=== PATIENT | female | born 1980 | race Caucasian/White ===

== ENCOUNTER 2021-10-26 14:05 | Emergency (ER) | payer BC ==
--- OUTSIDE RECORDS SUMMARY | 2021-10-26 14:10 | XMS REPORT | Continuity of Care Document ---
:1980 Author Organization [facility] t Address [address] [place] [address] Care Team Providers Name Role Phone Catherine GARCÍA Primary Care Physician Unavailable David Attending Clinician Unavailable Raimundo Knott Attending Clinician [phone] RADIOLOGY Attending Clinician Unavailable Radiology Attending Clinician Unavailable GENE Attending Clinician Unavailable Gene MUSIC COORDINATOR Attending Clinician DWAYNE VALADEZ Attending Clinician Unavailable Mary ROGERS Attending Clinician Unavailable ARMANDO Attending Clinician Unavailable Only, Db Test Attending Clinician Unavailable Armando BASSETT Attending Clinician Ebrahim MUSIC COORDINATOR Attending Clinician EBRAHIM Attending Clinician Unavailable Ibikundoretha MUSIC COORDINATOR, F Attending Clinician IBIKUNLE, F Attending Clinician Unavailable UNKNOWN Attending Clinician Unavailable Ramona ROJO Attending Clinician Unavailable Dwayne Valadez DO Attending Clinician Doctor Unassigned, Name Attending Clinician Unavailable ANENE Attending Clinician Unavailable Ramona Rojo MD Attending Clinician Green MUSIC COORDINATOR Attending Clinician Unknown Attending Clinician Unavailable Aron BASSETT, E Attending Clinician David Admitting Clinician Unavailable RAIMUNDO KNOTT Admitting Clinician Unavailable EDWIN, Isabel Admitting Clinician Unavailable Payers Payer Name Policy Type Policy Number Effective Date Expiration Date [place] [id number] 2019 00:00:00 BLUE ESSENTIALS [id number] 2019 HMO 00:00:00 [employer] TRS CARE [id number] 2015 2019 00:00:00 00:00:00 Problems Condition Condition Condition Status Onset Resolution Last Treating Co mments Source Name Details Category Date Date Treatment Clinician Date Hypertensi Hypertensi Disease Active 2020-04 U nivers on on 05-31 ity of 00:00: [place] [facility] Acquired Acquired Disease Active 2016-04 Unive rs hypothyroi hypothyroi 0 it y of dism dism 00:00: [place] 00 [facility] Branch Anemia, Anemia, Disease Active 2016-04 Univers unspecifie unspecifie it y of d type d type 00:00: [place] 00 Medical [place] Allergies, Adverse Reactions, Alerts Allergy Allergy Status Severity Reaction(s) Onset Inactive Treating Comm ents Source Name Type Date Date Clinician Erythrom Propensi Active Nausea 2015-04 Univer s ycin ty to and/or 0-14 ity of adverse Vomiting 00:00: [place] reaction 00 [facility] s Branch ERYTHROM DRUG Active N/V 2015-04 Univers YCIN 0-14 ity of 00:00: [place] 00 [facility] Social History Social Habit Start Date Stop Date Quantity Comments Source Alcohol Comment social [facility] Exposure to 2021-09-21 2021-10-01 Not sure [facility] SARS-CoV-2 (event) 00:00:00 10:10:00 Medica l Branch Alcohol intake 2021-10-01 2021-10-01 0 /d [facility] 00:00:00 00:00:00 [facility] Tobacco use and 2019-10-24 2019-10-24 Never used [facility] exposure 00:00:00 00:00:00 [facility] Sex [birth year] [facility] 00:00:00 00:00:00 [facility] Smoking Status Start Date Stop Date Source Never smoker [facility] Medications Ordered Filled Start Stop Current Ordering Indication Dosage Frequency Signature Comments Components Source Medication Medication Date Date Medication? Clinician (SIG) Name Name benzonatate 2020-04 Yes [id number] 200mg Take 2 Univers (TESSALON 2-28 capsules ity of WILLIE) 100 00:00: by mouth [place] mg capsule 00 every 8 Medica l (eight) Branch hours as needed for Cough. benzonatate 2020-04 Yes [id number] 200mg Take 2 Univers (TESSALON 2-28 capsules ity of WILLIE) 100 00:00: by mouth [place] mg capsule 00 every 8 Medica l (eight) Branch hours as needed for Cough. lisinopriL 2020-04 Yes Univers 5 mg tablet 2-21 ity of 00:00: [place] 00 Medical Branch lisinopriL 2020-04 Yes Univers 5 mg tablet 2-21 ity of 00:00: [place] 00 Medical Branch CALCIUM 2020-04 Yes Take by Univer s CARBONATE/V 0-22 mouth. ity of ITAMIN D2 18:13: [place] (CALCIUM + 35 Medical VITAMIN D Branch ORAL) MULTIVITAMI 2020-04 Yes Take by Un mechelle N ORAL 0-22 mouth. ity of 18:13: [address] Branch IRON, 2020-04 Yes Take by Univers FERROUS 0-22 mouth. ity of SULFATE, 18:13: [place] [address] Medical Branch Cholecalcif 2020-04 Yes Take by Un mechelle malu, 0-22 mouth. ity of Vitamin D3, 18:13: [place] (VITAMIN 35 Medical D3) 50 mcg Branch (2,000 unit) capsule CALCIUM 2020-04 Yes Take by Univer s CARBONATE/V 0-22 mouth. ity of ITAMIN D2 18:13: [place] (CALCIUM + 35 Medical VITAMIN D Branch ORAL) MULTIVITAMI 2020-04 Yes Take by Un mechelle N ORAL 0-22 mouth. ity of 18:13: [address] Branch IRON, 2020-04 Yes Take by Univers FERROUS 0-22 mouth. ity of SULFATE, 18:13: [place] [address] Medical Branch Cholecalcif 2020-04 Yes Take by Un mechelle malu, 0-22 mouth. ity of Vitamin D3, 18:13: [place] (VITAMIN 35 Medical D3) 50 mcg Branch (2,000 unit) capsule CALCIUM 2020-04 Yes Take by Univer s CARBONATE/V 0-22 mouth. ity of ITAMIN D2 18:13: [place] (CALCIUM + 35 Medical VITAMIN D Branch ORAL) MULTIVITAMI 2020-04 Yes Take by Un mechelle N ORAL 0-22 mouth. ity of 18:13: [place] 35 Medical Branch IRON, 2020-04 Yes Take by Univers FERROUS 0-22 mouth. ity of SULFATE, 18:13: [place] ORAL 35 Medical Branch Cholecalcif 2020-04 Yes Take by Un mechelle malu, 0-22 mouth. ity of Vitamin D3, 18:13: [place] (VITAMIN 35 Medical D3) 50 mcg Branch (2,000 unit) capsule CALCIUM 2020-04 Yes Take by Univer s CARBONATE/V 0-22 mouth. ity of ITAMIN D2 18:13: [place] (CALCIUM + 35 Medical VITAMIN D Branch ORAL) MULTIVITAMI 2020-04 Yes Take by Un mechelle N ORAL 0-22 mouth. ity of 18:13: [place] [address] Medical Branch IRON, 2020-04 Yes Take by Univers FERROUS 0-22 mouth. ity of SULFATE, 18:13: [place] ORAL 35 Medical Branch Cholecalcif 2020-04 Yes Take by Un mechelle malu, 0-22 mouth. ity of Vitamin D3, 18:13: [place] (VITAMIN 35 Medical D3) 50 mcg Branch (2,000 unit) capsule CALCIUM 2020-04 Yes Take by Univer s CARBONATE/V 0-22 mouth. ity of ITAMIN D2 18:13: [place] (CALCIUM + 35 Medical VITAMIN D Branch ORAL) MULTIVITAMI 2020-04 Yes Take by Un mechelle N ORAL 0-22 mouth. ity of 18:13: [place] [address] Medical Branch IRON, 2020-04 Yes Take by Univers FERROUS 0-22 mouth. ity of SULFATE, 18:13: [place] [address] Medical Branch Cholecalcif 2020-04 Yes Take by Un mechelle malu, 0-22 mouth. ity of Vitamin D3, 18:13: [place] (VITAMIN 35 Medical D3) 50 mcg Branch (2,000 unit) capsule CALCIUM 2020-04 Yes Take by Univer s CARBONATE/V 0-22 mouth. ity of ITAMIN D2 18:13: [place] (CALCIUM + 35 Medical VITAMIN D Branch ORAL) MULTIVITAMI 2020-04 Yes Take by Un mechelle N ORAL 0-22 mouth. ity of 18:13: [place] [address] Medical Branch IRON, 2020-04 Yes Take by Univers FERROUS 0-22 mouth. ity of SULFATE, 18:13: [facility] 35 Medical Branch Cholecalcif 2020-04 Yes Take by Un mechelle malu, 0-22 mouth. ity of Vitamin D3, 18:13: [place] (VITAMIN 35 Medical D3) 50 mcg Branch (2,000 unit) capsule aspirin 2020-04- 325mg 325 mg, Unive rs E.C. 0-01-21 Oral, ity of (ECOTRIN) 16:45: 16:45 ONCE, 1 [place] tablet 325 00 :00 dose, On Medic al mg [place] Branch 01/21/21 at 1145, STAT Cholecalcif 2020-04 Yes Take by Un mechelle malu, 0- mouth. ity of Vitamin D3, 09:50: [place] (VITAMIN 09 Medical D3) 50 mcg Branch (2,000 unit) capsule Cholecalcif 2020-0 Yes Take by Un mechelle malu, 10-23 mouth. ity of Vitamin D3, 19:56: [place] (VITAMIN 58 Medical D3) 50 mcg Branch (2,000 unit) capsule Cholecalcif 2020-0 Yes Take by Un mechelle malu, 10-23 mouth. ity of Vitamin D3, 19:56: [place] (VITAMIN 58 Medical D3) 50 mcg Branch (2,000 unit) capsule Cholecalcif 2020-0 Yes Take by Un mechelle malu, 10-23 mouth. ity of Vitamin D3, 19:56: [place] (VITAMIN 58 Medical D3) 50 mcg Branch (2,000 unit) capsule Cholecalcif 2020-0 Yes Take by Un mechelle malu, 10-23 mouth. ity of Vitamin D3, 19:56: [place] (VITAMIN 58 Medical D3) 50 mcg Branch (2,000 unit) capsule Cholecalcif 2020-0 Yes Take by Un mechelle malu, 10-23 mouth. ity of Vitamin D3, 19:56: [place] (VITAMIN 58 Medical D3) 50 mcg Branch (2,000 unit) capsule Cholecalcif 2020-0 Yes Take by Un mechelle malu, - mouth. ity of Vitamin D3, 19:56: [place] (VITAMIN 58 Medical D3) 50 mcg Branch (2,000 unit) capsule Cholecalcif 2020-0 Yes Take by Un mechelle malu, - mouth. ity of Vitamin D3, 19:56: [place] (VITAMIN 58 Medical D3) 50 mcg Branch (2,000 unit) capsule CALCIUM 2020-[address] [facility] s CARBONATE/V 7-23 mouth. ity of ITAMIN D2 19:54: [place] (CALCIUM + 08 Medical VITAMIN D Branch ORAL) CALCIUM 2020-0 Yes Take by Univer s CARBONATE/V 7-23 mouth. ity of ITAMIN D2 19:54: [place] (CALCIUM + 08 Medical VITAMIN D Branch ORAL) CALCIUM 2020-0 Yes Take by Univer s CARBONATE/V 7-23 mouth. ity of ITAMIN D2 19:54: [place] (CALCIUM + 08 Medical VITAMIN D Branch ORAL) CALCIUM 2020-0 Yes Take by Univer s CARBONATE/V 7-23 mouth. ity of ITAMIN D2 19:54: [place] (CALCIUM + 08 Medical VITAMIN D Branch ORAL) CALCIUM 2020-0 Yes Take by Univer s CARBONATE/V 7-23 mouth. ity of ITAMIN D2 19:54: [place] (CALCIUM + 08 Medical VITAMIN D Branch ORAL) CALCIUM 2020-0 Yes Take by Univer s CARBONATE/V 7-23 mouth. ity of ITAMIN D2 19:54: [place] (CALCIUM + 08 Medical VITAMIN D Branch ORAL) CALCIUM 2020-0 Yes Take by Univer s CARBONATE/V 7-23 mouth. ity of ITAMIN D2 19:54: [place] (CALCIUM + 08 Medical VITAMIN D Branch ORAL) MULTIVITAMI 2020-0 Yes Take by Un mechelle N ORAL 7-23 mouth. ity of 19:54: [address] Branch MULTIVITAMI 2020-0 Yes Take by Un mechelle N ORAL 7-23 mouth. ity of 19:54: [address] Branch MULTIVITAMI 2020-0 Yes Take by Un mechelle N ORAL 7-23 mouth. ity of 19:54: [address] Branch MULTIVITAMI 2020-0 Yes Take by Un mechelle N ORAL 7-23 mouth. ity of 19:54: [place] [address] Medical Branch MULTIVITAMI 2020-0 Yes Take by Un mechelle N ORAL 7-23 mouth. ity of 19:54: [place] [address] Medical Branch MULTIVITAMI 2020-0 Yes Take by Un mechelle N ORAL 7-23 mouth. ity of 19:54: [address] Branch MULTIVITAMI 2020-0 Yes Take by Un mechelle N ORAL 7-23 mouth. ity of 19:54: [place] 07 Medical Branch IRON, 2020-0 Yes Take by Univers FERROUS 7-23 mouth. ity of SULFATE, 19:54: [facility] 06 Medical Branch IRON, 2020-[address] [facility] FERROUS 7-23 mouth. ity of SULFATE, 19:54: [place] ORAL 06 Medical Branch IRON, 2020-[address] [facility] FERROUS 7-23 mouth. ity of SULFATE, 19:54: [place] ORAL 06 Medical Branch IRON, 2020-[address] [facility] FERROUS 7-23 mouth. ity of SULFATE, 19:54: [place] ORAL 06 Medical Branch IRON, 2020-[address] [facility] FERROUS 7-23 mouth. ity of SULFATE, 19:54: [place] ORAL 06 Medical Branch IRON, 2020-[address] [facility] FERROUS 7-23 mouth. ity of SULFATE, 19:54: [place] ORAL 06 Medical Branch IRON, 2020-[address] [facility] FERROUS 7-23 mouth. ity of SULFATE, 19:54: [place] ORAL 06 Medical Branch ZINC ORAL 2020-0 Yes Take by [facility] ers 7-23 mouth ity of 19:54: daily. [place] 05 Medical Branch ZINC ORAL 2020-0 Yes Take by Univ ers 7-23 mouth ity of 19:54: daily. [place] 05 Medical Branch ZINC ORAL 2020-0 Yes Take by [facility] ers 7-23 mouth ity of 19:54: daily. [place] 05 Medical Branch ZINC ORAL 2020-0 Yes Take by Univ ers 7-23 mouth ity of 19:54: daily. [place] 05 Medical Branch ZINC ORAL 2020-0 Yes Take by [facility] ers 7-23 mouth ity of 19:54: daily. [place] 05 Medical Branch ZINC ORAL 2020-0 Yes Take by Univ ers 7-23 mouth ity of 19:54: daily. [place] 05 Medical Branch ZINC ORAL 2020-0 Yes Take by [facility] ers 7-23 mouth ity of 19:54: daily. [place] [address] Medical Branch CALCIUM 2020-0 Yes Take by [facility] CARBONATE/V -23 mouth. ity of ITAMIN D2 14:54: [place] (CALCIUM + 08 Medical VITAMIN D Branch ORAL) MULTIVITAMI 2020-0 Yes Take by Un mechelle N ORAL 7-23 mouth. ity of 14:54: [place] 07 Medical Branch IRON, 2020-[address] [facility] FERROUS 7-23 mouth. ity of SULFATE, 14:54: [place] ORAL 06 Medical Branch ZINC ORAL 2020-0 Yes Take by Univ ers 7-23 mouth ity of 14:54: daily. [place] 05 Medical Branch ZINC ORAL 2020-0 Yes Take by Univ ers 7-23 mouth ity of 14:54: daily. [address] ZINC ORAL 2020-0 Yes Take by [facility] ers 7-23 mouth ity of 14:54: daily. [address] ZINC ORAL 2020-0 Yes Take by [facility] ers 7-23 mouth ity of 14:54: daily. [address] ZINC ORAL 2020-0 Yes Take by [facility] ers 7-23 mouth ity of 14:54: daily. [address] ZINC ORAL 2020-0 Yes Take by [facility] ers 7-23 mouth ity of 14:54: daily. [address] ZINC ORAL 2020-0 Yes Take by [facility] ers 7-23 mouth ity of 14:54: daily. [address] amoxicillin 2019- 2020- No [id number] 500mg Take 1 Univers 500 mg -16 - capsule by ity of capsule 00:00: 05:59 mouth 2 [place] 00 :00 (two) [facility] times [place] daily for 10 days. amoxicillin 2019- 2020- No [id number] 500mg Take 1 Univers 500 mg -05-30 capsule by ity of capsule 00:00: 05:59 mouth 2 [place] 00 :00 ([facility]) Medical times [place] daily for 10 days. amoxicillin 2019- 2020- No [id number] 500mg Take 1 Univers 500 mg -16 05-30 capsule by ity of capsule 00:00: 05:59 mouth 2 [place] 00 :00 ([facility]) [facility] times [place] daily for 10 days. CALCIUM 2018-[address] [facility] s CARBONATE/V 2-31 mouth. ity of ITAMIN D2 14:03: [place] (CALCIUM + 39 Medical VITAMIN D Branch ORAL) IRON, 2018-[address] [facility] FERROUS 2-31 mouth. ity of SULFATE, 14:03: [address] CALCIUM 2018-[address] [facility] s CARBONATE/V 2-31 mouth. ity of ITAMIN D2 14:03: [place] (CALCIUM + 39 Medical VITAMIN D Branch ORAL) IRON, 2018-[address] [facility] FERROUS 2-31 mouth. ity of SULFATE, 14:03: [address] CALCIUM 2018- Yes Take by [facility] CARBONATE/V 2-31 mouth. ity of ITAMIN D2 14:03: [place] (CALCIUM + 39 Medical VITAMIN D Branch ORAL) IRON, 2018-[address] [facility] FERROUS 2-31 mouth. ity of SULFATE, 14:03: [address] CALCIUM 2018- Yes Take by Univer s CARBONATE/V 2-31 mouth. ity of ITAMIN D2 14:03: [place] (CALCIUM + 39 Medical VITAMIN D Branch ORAL) IRON, 2018-04 Yes Take by Univers FERROUS 2-31 mouth. ity of SULFATE, 14:03: [place] [address] Medical Branch CALCIUM 2018-04 Yes Take by Univer s CARBONATE/V 2-31 mouth. ity of ITAMIN D2 14:03: [place] (CALCIUM + 39 Medical VITAMIN D Branch ORAL) IRON, 2018-04 Yes Take by Univers FERROUS 2-31 mouth. ity of SULFATE, 14:03: [place] ORAL Medical Branch CALCIUM 2018- Yes Take by Univer s CARBONATE/V 2-31 mouth. ity of ITAMIN D2 14:03: [place] (CALCIUM + 39 Medical VITAMIN D Branch ORAL) IRON, 2018-04 Yes Take by Univers FERROUS 2-31 mouth. ity of SULFATE, 14:03: [place] [address] Medical Branch CALCIUM 2018-04 Yes Take by Univer s CARBONATE/V 2-31 mouth. ity of ITAMIN D2 14:03: [place] (CALCIUM + 39 Medical VITAMIN D Branch ORAL) IRON, 2018-04 Yes Take by Univers FERROUS 2-31 mouth. ity of SULFATE, 14:03: [place] [address] Medical Branch CALCIUM 2018- Yes Take by Univer s CARBONATE/V 2-31 mouth. ity of ITAMIN D2 14:03: [place] (CALCIUM + 39 Medical VITAMIN D Branch ORAL) IRON, 2018-04 Yes Take by Univers FERROUS 2-31 mouth. ity of SULFATE, 14:03: [place] [address] Medical Branch CALCIUM 2018- Yes Take by Univer s CARBONATE/V 2-31 mouth. ity of ITAMIN D2 14:03: [place] (CALCIUM + 39 Medical VITAMIN D Branch ORAL) IRON, 2018-04 Yes Take by Univers FERROUS 2-31 mouth. ity of SULFATE, 14:03: [place] [address] Medical Branch MULTIVITAMI 2019- Yes Take by Un mechelle N ORAL 2-31 mouth. ity of 13:55: [place] [address] Medical Branch MULTIVITAMI 2018-04 Yes Take by Un mechelle N ORAL 2-31 mouth. ity of 13:55: [place] [address] Medical Branch MULTIVITAMI 2018-04 Yes Take by Un mechelle N ORAL 2-31 mouth. ity of 13:55: [place] [address] Medical Branch MULTIVITAMI 2018-04 Yes Take by Un mechelle N ORAL 2-31 mouth. ity of 13:55: [place] [address] Medical Branch MULTIVITAMI 2018-04 Yes Take by Un mechelle N ORAL 2-31 mouth. ity of 13:55: [place] [address] Medical Branch MULTIVITAMI 2018-04 Yes Take by Un me[place]le N ORAL 2-31 mouth. ity of 13:55: [place] [address] Medical Branch MULTIVITAMI 2018-04 Yes Take by Un [place]le N ORAL 2-31 mouth. ity of 13:55: [place] [address] Medical Branch MULTIVITAMI 2018-04 Yes Take by Un me[place]le N ORAL 2-31 mouth. ity of 13:55: [place] [address] Medical Branch MULTIVITAMI 2018-04 Yes Take by Un mechelle N ORAL 2-31 mouth. ity of 13:55: [place] [address] Medical Branch fluocinonid 2018-04 Yes [id number] Apply to Univers e 0.05 % 0-23 area(s) 2 ity of cream 00:00: (two) [place] 00 times Medical daily. Branch fluocinonid 2018- Yes [id number] Apply to Univers e 0.05 % 0-23 area(s) 2 ity of cream 00:00: (two) [place] 00 times Medical daily. Branch fluocinonid 2018- Yes [id number] Apply to Univers e 0.05 % 0-23 area(s) 2 ity of cream 00:00: (two) [place] 00 times Medical daily. Branch fluocinonid 2018- Yes [id number] Apply to Univers e 0.05 % 0-23 area(s) 2 ity of cream 00:00: (two) [place] 00 times Medical daily. Branch fluocinonid 2018- Yes [id number] Apply to Univers e 0.05 % 0-23 area(s) 2 ity of cream 00:00: (two) [place] 00 times Medical daily. Branch fluocinonid 2018- Yes [id number] Apply to Univers e 0.05 % 0-23 area(s) 2 ity of cream 00:00: (two) [place] 00 times Medical daily. Branch fluocinonid 2018- Yes [id number] Apply to Univers e 0.05 % 0-23 area(s) 2 ity of cream 00:00: (two) [place] 00 times Medical daily. Branch fluocinonid 2018-04 Yes [id number] Apply to Univers e 0.05 % 0-23 area(s) 2 ity of cream 00:00: (two) [place] 00 times Medical daily. Branch fluocinonid 2018- Yes [id number] Apply to Univers e 0.05 % 0-23 area(s) 2 ity of cream 00:00: (two) [place] 00 times Medical daily. Branch fluocinonid 2018-04 2020- No [id number] Apply to Univers e 0.05 % 0-23 07-23 area(s) 2 ity o f cream 00:00: 00:00 (two) [place] 00 :00 times Medical daily. Branch acetaminoph 2018- Yes [id number] 04/04 Univers en-codeine 8-03 tab Every ity of 300-30 mg 00:00: 4hrs as [place] tablet 00 needed for Medical pain or Branch cough requiring narcotic levothyroxi Yes [id number] 175ug Take 1 Univers ne 6-25 tablet by ity of (SYNTHROID) 00:00: mouth [place] 175 mcg 00 every Medical tablet morning. Branch levothyroxi Yes [id number] 175ug Take 1 Univers ne 6-25 tablet by ity of (SYNTHROID) 00:00: mouth [place] 175 mcg 00 every Medical tablet morning. Branch levothyroxi Yes [id number] 175ug Take 1 Univers ne 6-25 tablet by ity of (SYNTHROID) 00:00: mouth [place] 175 mcg 00 every Medical tablet morning. Branch levothyroxi 2018- Yes [id number] 175ug Take 1 Univers ne 6-25 tablet by ity of (SYNTHROID) 00:00: mouth [place] 175 mcg 00 every Medical tablet morning. Branch levothyroxi Yes [id number] 175ug Take 1 Univers ne 6-25 tablet by ity of (SYNTHROID) 00:00: mouth [place] 175 mcg 00 every Medical tablet morning. Branch levothyroxi 2018- Yes [id number] 175ug Take 1 Univers ne 6-25 tablet by ity of (SYNTHROID) 00:00: mouth [place] 175 mcg 00 every Medical tablet morning. Branch levothyroxi Yes [id number] 175ug Take 1 Univers ne 6-25 tablet by ity of (SYNTHROID) 00:00: mouth [place] 175 mcg 00 every Medical tablet morning. Branch levothyroxi 2019-0 Yes [id number] 175ug Take 1 Univers ne 6-25 tablet by ity of (SYNTHROID) 00:00: mouth [place] 175 mcg 00 every Medical tablet morning. Branch levothyroxi 2019-0 Yes [id number] 175ug Take 1 Univers ne 6-25 tablet by ity of (SYNTHROID) 00:00: mouth [place] 175 mcg 00 every Medical tablet morning. Branch levothyroxi 2019-0 Yes [id number] 175ug Take 1 Univers ne 6-25 tablet by ity of (SYNTHROID) 00:00: mouth [place] 175 mcg 00 every Medical tablet morning. Branch levothyroxi 2019-0 Yes [id number] 175ug Take 1 Univers ne 6-25 tablet by ity of (SYNTHROID) 00:00: mouth [place] 175 mcg 00 every Medical tablet morning. Branch levothyroxi 2019-0 Yes [id number] 175ug Take 1 Univers ne 6-25 tablet by ity of (SYNTHROID) 00:00: mouth [place] 175 mcg 00 every Medical tablet morning. Branch levothyroxi 2019-0 Yes [id number] 175ug Take 1 Univers ne 6-25 tablet by ity of (SYNTHROID) 00:00: mouth [place] 175 mcg 00 every Medical tablet morning. Branch levothyroxi 2019-0 Yes [id number] 175ug Take 1 Univers ne 6-25 tablet by ity of (SYNTHROID) 00:00: mouth [place] 175 mcg 00 every Medical tablet morning. Branch levothyroxi 2019-0 Yes [id number] 175ug Take 1 Univers ne 6-25 tablet by ity of (SYNTHROID) 00:00: mouth [place] 175 mcg 00 every Medical tablet morning. Branch levothyroxi 2019-0 Yes [id number] 175ug Take 1 Univers ne 6-25 tablet by ity of (SYNTHROID) 00:00: mouth [place] 175 mcg 00 every Medical tablet morning. Branch levothyroxi 2019-0 Yes [id number] 175ug Take 1 Univers ne 6-25 tablet by ity of (SYNTHROID) 00:00: mouth [place] 175 mcg 00 every Medical tablet morning. Branch levothyroxi 2019-0 Yes [id number] 175ug Take 1 Univers ne 6-25 tablet by ity of (SYNTHROID) 00:00: mouth [place] 175 mcg 00 every Medical tablet morning. Branch levothyroxi 2019-0 Yes [id number] 175ug Take 1 Univers ne 6-25 tablet by ity of (SYNTHROID) 00:00: mouth [place] 175 mcg 00 every Medical tablet morning. Branch levothyroxi 2019-0 Yes [id number] 175ug Take 1 Univers ne 6-25 tablet by ity of (SYNTHROID) 00:00: mouth [place] 175 mcg 00 every Medical tablet morning. Branch levothyroxi 2019-0 Yes [id number] 175ug Take 1 Univers ne 6-25 tablet by ity of (SYNTHROID) 00:00: mouth [place] 175 mcg 00 every Medical tablet morning. Branch levothyroxi 2019-0 Yes [id number] 175ug Take 1 Univers ne 6-25 tablet by ity of (SYNTHROID) 00:00: mouth [place] 175 mcg 00 every Medical tablet morning. Branch levothyroxi 2019-0 Yes [id number] 175ug Take 1 Univers ne 6-25 tablet by ity of (SYNTHROID) 00:00: mouth [place] 175 mcg 00 every Medical tablet morning. Branch levothyroxi 2019-0 Yes [id number] 175ug Take 1 Univers ne 6-25 tablet by ity of (SYNTHROID) 00:00: mouth [place] 175 mcg 00 every Medical tablet morning. [place] ZINC ORAL 2019-0 Yes Take by [facility] ers 5-04 mouth ity of 15:30: daily. [address] Branch ZINC ORAL 2019-0 Yes Take by [facility] ers 5-04 mouth ity of 15:30: daily. [address] Branch ZINC ORAL 2019-0 Yes Take by [facility] ers 5-04 mouth ity of 15:30: daily. [address] ZINC ORAL 2019-0 Yes Take by [facility] ers 5-04 mouth ity of 15:30: daily. [address] Branch CALCIUM 2019-[address] [facility] s CARBONATE/V 5-04 mouth. ity of ITAMIN D2 15:30: [place] (CALCIUM + [address] [place] [address] VITAMIN D Branch ORAL) MULTIVITAMI 2019-0 Yes Take by mechelle N ORAL 5-04 mouth. ity of 15:30: [address] Branch IRON, 2019-[address] [facility] FERROUS 5-04 mouth. ity of SULFATE, 15:30: [address] Branch ZINC ORAL 2019-0 Yes Take by Univ ers 5-04 mouth ity of 15:30: daily. [address] ZINC ORAL 2019-0 Yes Take by Univ ers 5-04 mouth ity of 15:30: daily. [address] ZINC ORAL 2019-0 Yes Take by Univ ers 5-04 mouth ity of 15:30: daily. [address] ZINC ORAL 2019-0 Yes Take by Univ ers 5-04 mouth ity of 15:30: daily. [address] ZINC ORAL 2019-0 Yes Take by Univ ers 5-04 mouth ity of 15:30: daily. [address] ZINC ORAL 2019-0 Yes Take by Univ ers 5-04 mouth ity of 15:30: daily. [address] acetaminoph 2019-0 Yes [id number] 04/04 Univers en-codeine 5-04 tab Every ity of 300-30 mg 00:00: 4hrs as [place] tablet 00 needed for Medical pain or Branch cough requiring narcotic Immunizations Ordered Filled Immunization Date Status Comments [facility] e Immunization Name Name Influenza Virus 2018-01-22 Completed Universit y of Vaccine 00:00:00 [facility] Influenza Virus 2018-01-22 Completed Universit y of Vaccine 00:00:00 [facility] Influenza Virus 2018-01-22 Completed Universit y of Vaccine 00:00:00 [facility] Influenza Virus 2018-01-22 Completed Universit y of Vaccine 00:00:00 [facility] Influenza Virus 2018-01-22 Completed Universit y of Vaccine 00:00:00 [facility] Influenza Virus 2018-01-22 Completed Universit y of Vaccine 00:00:00 [facility] Influenza Virus 2018-01-22 Completed Universit y of Vaccine 00:00:00 [facility] Influenza Virus 2018-01-22 Completed Universit y of Vaccine 00:00:00 [facility] Influenza Virus 2018-01-22 Completed Universit y of Vaccine 00:00:00 [facility] Influenza Virus 2018-01-22 Completed Universit y of Vaccine 00:00:00 [facility] Influenza Virus 2018-01-22 Completed Universit y of Vaccine 00:00:00 [facility] Influenza Virus 2018-01-22 Completed Universit y of Vaccine 00:00:00 [facility] Influenza Virus 2018-01-22 Completed Universit y of Vaccine 00:00:00 [facility] Influenza Virus 2018-01-22 Completed Universit y of Vaccine 00:00:00 [facility] Influenza Virus 2018-01-22 Completed Universit y of Vaccine 00:00:00 [facility] Influenza Virus 2018-01-22 Completed Universit y of Vaccine 00:00:00 [facility] Influenza Virus 2018-01-22 Completed Universit y of Vaccine 00:00:00 [facility] Influenza Virus 2018-01-22 Completed Universit y of Vaccine 00:00:00 [facility] Influenza Virus 2018-01-22 Completed Universit y of Vaccine 00:00:00 [facility] Influenza Virus 2018-01-22 Completed Universit y of Vaccine 00:00:00 [facility] Influenza Virus 2018-01-22 Completed Universit y of Vaccine 00:00:00 [facility] Influenza Virus 2018-01-22 Completed Universit y of Vaccine 00:00:00 [facility] Influenza Virus 2018-01-22 Completed Universit y of Vaccine 00:00:00 [facility] Influenza Virus 2018-01-22 Completed Universit y of Vaccine 00:00:00 [facility] Influenza Virus 2017-01-27 Completed Universit y of Vaccine Quad IM 3+ 00:00:00 [facility] Influenza Virus 2017-01-27 Completed Universit y of Vaccine Quad IM 3+ 00:00:00 [facility] Influenza Virus 2017-01-27 Completed Universit y of Vaccine Quad IM 3+ 00:00:00 [facility] Influenza Virus 2017-01-27 Completed Universit y of Vaccine Quad IM 3+ 00:00:00 [facility] Influenza Virus 2017-01-27 Completed Universit y of Vaccine Quad IM 3+ 00:00:00 [facility] Influenza Virus 2017-01-27 Completed Universit y of Vaccine Quad IM 3+ 00:00:00 [facility] Influenza Virus 2017-01-27 Completed Universit y of Vaccine Quad IM 3+ 00:00:00 [facility] Influenza Virus 2017-01-27 Completed Universit y of Vaccine Quad IM 3+ 00:00:00 [facility] Influenza Virus 2017-01-27 Completed Universit y of Vaccine Quad IM 3+ 00:00:00 [facility] Influenza Virus 2017-01-27 Completed Universit y of Vaccine Quad IM 3+ 00:00:00 [facility] Influenza Virus 2017-01-27 Completed Universit y of Vaccine Quad IM 3+ 00:00:00 [facility] Influenza Virus 2017-01-27 Completed Universit y of Vaccine Quad IM 3+ 00:00:00 [facility] Influenza Virus 2017-01-27 Completed Universit y of Vaccine Quad IM 3+ 00:00:00 [facility] Influenza Virus 2017-01-27 Completed Universit y of Vaccine Quad IM 3+ 00:00:00 [facility] Influenza Virus 2017-01-27 Completed Universit y of Vaccine Quad IM 3+ 00:00:00 [facility] Influenza Virus 2017-01-27 Completed Universit y of Vaccine Quad IM 3+ 00:00:00 [facility] Influenza Virus 2017-01-27 Completed Universit y of Vaccine Quad IM 3+ 00:00:00 [facility] Influenza Virus 2017-01-27 Completed Universit y of Vaccine Quad IM 3+ 00:00:00 [facility] Influenza Virus 2017-01-27 Completed Universit y of Vaccine Quad IM 3+ 00:00:00 [facility] Influenza Virus 2017-01-27 Completed Universit y of Vaccine Quad IM 3+ 00:00:00 [facility] Influenza Virus 2017-01-27 Completed Universit y of Vaccine Quad IM 3+ 00:00:00 [facility] Influenza Virus 2017-01-27 Completed Universit y of Vaccine Quad IM 3+ 00:00:00 [facility] Influenza Virus 2017-01-27 Completed Universit y of Vaccine Quad IM 3+ 00:00:00 [facility] Influenza Virus 2017-01-27 Completed Universit y of Vaccine Quad IM 3+ 00:00:00 [facility] Vital Signs Vital Name Observation Time Observation Value Comments Source Systolic blood 2021-03-30 21:19:00 136 mm[Hg] Univer sity of pressure [facility] Diastolic blood 2021-03-30 21:19:00 90 mm[Hg] Unive rsity of pressure [facility] Heart rate 2021-03-30 21:19:00 106 /min [facility] Body temperature 2021-03-30 21:19:00 36.28 Gabriela [facility] ersity of [facility] Respiratory rate 2021-03-30 21:19:00 18 /min [facility] height 2021-03-30 21:19:00 167.6 cm [facility] Body weight 2021-03-30 21:19:00 112.719 kg [facility] [place] [facility] BMI 2021-03-30 21:19:00 40.11 kg/m2 [facility] Oxygen saturation in 2021-03-30 21:19:00 97 /min University of Arterial blood by [facility] Pulse oximetry Branch Systolic blood 2021-01-22 23:15:00 134 mm[Hg] Univer sity of pressure [facility] Diastolic blood 2021-01-22 23:15:00 89 mm[Hg] Unive rsity of pressure [facility] Heart rate 2021-01-22 23:12:00 95 /min [facility] [place] [facility] Body temperature 2021-01-22 23:12:00 36.67 Gabriela Univ ersity [facility] [place] [facility] Respiratory rate 2021-01-22 23:12:00 18 /min Univ ersity [facility] [place] [facility] Body height 2021-01-22 23:12:00 167.6 cm [facility] [place] [facility] Body weight 2021-01-22 23:12:00 111.54 kg [facility] [place] [facility] BMI 2021-01-22 23:12:00 39.69 kg/m2 [facility] [place] [facility] Oxygen saturation in 2021-01-22 23:12:00 98 /min University of Arterial blood by [facility] Pulse oximetry Branch Systolic blood 2021-01-21 17:51:12 134 mm[Hg] Univer sity of pressure [facility] Diastolic blood 2021-01-21 17:51:12 97 mm[Hg] Unive rsity of pressure [facility] Heart rate 2021-01-21 17:51:12 84 /min [facility] [place] [facility] Respiratory rate 2021-01-21 17:51:12 15 /min Univ ersity [facility] [place] [facility] Oxygen saturation in 2021-01-21 17:51:12 98 /min University of Arterial blood by [facility] daksha Pulse oximetry Branch Body temperature 2021-01-21 14:53:58 36.78 Gabriela Univ ersity [facility] Body weight 2021-01-21 14:50:00 110.678 kg [facility] [place] [facility] BMI 2021-01-21 14:50:00 38.22 kg/m2 [facility] [place] [facility] Systolic blood 2019-05-20 02:47:00 136 mm[Hg] Univer sity of pressure [facility] Diastolic blood 2019-05-20 02:47:00 88 mm[Hg] Unive rsity of pressure [facility] Heart rate 2019-05-20 02:47:00 129 /min Universi ty of [facility] Body temperature 2019-05-20 02:47:00 37.11 Gabriela Univ ersity of [place] [facility] Respiratory rate 2019-05-20 02:47:00 18 /min Univ ersity of [place] [facility] Body height 2019-05-20 02:47:00 170.2 cm [facility] [place] [facility] Body weight 2019-05-20 02:47:00 107.14 kg [facility] [place] [facility] BMI 2019-05-20 02:47:00 36.99 kg/m2 Universi ty [facility] Oxygen saturation in 2019-05-20 02:47:00 97 /min University of Arterial blood by [place] daksha Pulse oximetry Branch Systolic blood 2018-11-03 19:22:00 124 mm[Hg] Univer sity of pressure [place] [facility] Diastolic blood 2018-11-03 19:22:00 73 mm[Hg] Unive rsity of pressure [place] [facility] [place] Heart rate 2018-11-03 19:22:00 103 /min [facility] [place] [facility] [place] Body temperature 2018-11-03 19:22:00 37.17 Gabriela Univ ersity [facility] [place] [facility] [place] Respiratory rate 2018-11-03 19:22:00 18 /min Univ ersity [facility] [place] [facility] [place] Body height 2018-11-03 19:22:00 167.6 cm [facility] [place] [facility] Body weight 2018-11-03 19:22:00 103.692 kg [facility] [place] [facility] BMI 2018-11-03 19:22:00 36.90 kg/m2 [facility] [place] [facility] Oxygen saturation in 2018-11-03 19:22:00 98 /min University of Arterial blood by [place] daksha Pulse oximetry Branch Procedures Procedure Date / Time Performing Clinician Source Performed TROPONIN I 2021-01-21 17:51:00 Meseret Cano [facility] [place] [facility] XR CHEST 1 VW 2021-01-21 16:43:13 Meseret Cano [facility] POCT TEST 2021-01-21 15:53:00 Meseret Cano [facility] LIPASE 2021-01-21 15:47:00 Meseret Cano [facility] TROPONIN I 2021-01-21 15:47:00 Meseret Cano [facility] FREE T4 2021-01-21 15:47:00 Meseret Cano [facility] THYROID STIMULATING 2021-01-21 15:47:00 Meseret Cano [facility] HORMONE [facility] COMP. METABOLIC PANEL 2021-01-21 15:47:00 Meseret Cano [facility] ([id number]) [facility] CBC WITH DIFF 2021-01-21 15:47:00 Meseret Cano [facility] D-DIMER 2021-01-21 15:47:00 Meseret Cano [facility] URINALYSIS 2021-01-21 15:47:00 Meseret Cano [facility] N-TERMINAL PRO-BNP 2021-01-21 15:47:00 Meseret Cano [facility] HB ECG ROUTINE & RHYTHM 2021-01-21 15:01:04 Meseret Cano [facility] CONSENT/REFUSAL FOR 2021-01-21 14:50:26 Doctor Unassigned, [facility] DIAGNOSIS AND TREATMENT [place] [facility] MR ANKLE LEFT WO CONTRAST 2020-02-05 16:24:12 Requisition, Paper [facility] XR ANKLE 3+ VW LEFT 2020-02-05 15:25:26 [facility]quisition, [facility] CONSENT/REFUSAL FOR 2020-02-05 15:14:42 Doctor Maddiessboyd, [facility] DIAGNOSIS AND TREATMENT [place] [facility] [place] ASSIGNMENT OF BENEFITS 2020-02-05 15:14:30 Doctor Unassigned, [facility] [place] [facility] INSURANCE CORRESPONDENCE 2020-02-03 06:01:00 Doctor Michael, [facility] [place] [facility] POCT FLU A AND B 2019-05-20 02:49:00 Joseph Sharp [facility] (MOLECULAR) Medical Branch POCT GRP A STREP 2019-05-20 02:42:00 Joseph Sharp [facility] (MOLECULAR) Medical Branch BI ULTRASOUND BREAST 2019-04-23 22:09:36 Daysi Rojo [facility] LIMITED BILATERAL A Medical Branch BI DIAGNOSTIC MAMMOGRAM 2019-04-23 21:45:14 Daysi Rojo [facility] BILATERAL A Medical Branch BI DIAGNOSTIC MAMMOGRAM 2019-04-23 21:45:14 Darrel Daysi [facility] BILATERAL A Medical Branch CONSENT/REFUSAL FOR 2019-04-23 14:18:29 Doctor Michael, [facility] DIAGNOSIS AND TREATMENT [place] [facility] ASSIGNMENT OF BENEFITS 2019-04-23 14:18:15 Doctor Michael, [facility] [place] [facility] Encounters Start End Encounter Admission Attending Care Care Encounter Source Date/Time Date/Time Type Type Clinicians Facility Department ID 2021-10-14 2021-10-14 Outpatient GC_SWHAOMC_ PRIV PRIV [id number] [facility] 02:42:00 02:42:00 Black_Yamini [id number] Medica l 2021-10-14 2021-10-14 Outpatient Nikos Meliza PRIV PRIV [id number] 00:00:00 00:00:00 Raimundo [id number] 2021-10-11 2021-10-11 Outpatient R RADIOLOGY [facility] [id number] Univers 10:20:00 10:20:00 [id number] ity of [facility] 2021-10-01 2021-10-01 Outpatient R RADIOLOGY [facility] [id number] Univers 11:17:25 23:59:00 ity of [facility] 2021-10-01 2021-10-01 Hospital Radiology [facility] [[email or web address]] 1.2.840.114 [id number] Univers 11:17:25 23:59:00 Encounter ANGLECLAUDIA [id number] ity [facility] [id number] [place] [id number] [place] [address] Branch 2021-10-01 2021-10-01 Outpatient R [facility] [id number] Univers 11:40:00 11:40:00 [id number] ity [facility] 2021-09-28 2021-09-28 Outpatient R RADIOLOGY [facility] [id number] Univers 00:00:00 00:00:00 [id number] ity [facility] 2021-09-28 2021-09-28 Outpatient R RADIOLOGY [facility] [id number] Univers 00:00:00 00:00:00 ity [facility] 2021-09-21 2021-09-21 Outpatient GC_SWHAOMC_ PRIV PRIV [id number] [facility] 12:52:00 12:52:00 Black_D [id number] Medica l 2021-09-21 2021-09-21 Outpatient GC_[facility]WHAOM[facility]_ PRIV PRIV [id number] [facility] 03:02:00 03:02:00 Black_D [id number] Medica l 2021-03-31 2021-03-31 Outpatient R [facility] [id number] Univers 20:40:00 20:40:00 [id number] [facility] 2021-03-30 2021-03-30 [facility] [id number] Univers 15:00:00 15:44:33 [facility] o f [facility] 2021-03-30 2021-03-30 Urgent [facility] 1.2.840.114 [id number] Univers 15:00:00 15:44:33 Care [facility] [id number] i ty of [place] [id number] Isreal as ABHAY?BLEA [phone] Ar teresa[address] MEDICAL OFFICE BUILDING 2021-03-30 2021-03-30 Outpatient R [facility] [id number] Univers 15:00:00 15:00:00 [id number] [facility] 2021-03-30 2021-03-30 [facility] [id number] Univers 10:00:00 10:00:00 DWAINE ity [facility] 2021-03-27 2021-03-27 Telephone HUGO Hernandez [id number] Univers 00:00:00 00:00:00 Christine BROWN [id number] it y of [facility] [id number] Isreal as [phone] [address] 2021-03-26 2021-03-26 Outpatient R ARMANDO [facility] [id number] Univers 17:00:00 17:35:39 MIAH ity [facility] 2021-03-26 2021-03-26 Laboratory Only, Ang Db Test [facility] [[email or web address]] 1.2.8 40.114 [id number] Univers 17:00:00 17:15:00 Only Armando Miah [facility] [id number] ity of [place] [id number] Isreal as ABHAY?BLEA [id number] Ar teresaluis miguel [address] MEDICAL OFFICE [facility] 2021-03-26 2021-03-26 Outpatient R [facility] [id number] Univers 17:00:00 17:00:00 [id number] ity [facility] 2021-03-25 2021-03-25 Outpatient R [facility] [id number] Univers 15:00:00 15:00:00 [id number] ity [facility] 2021-03-25 2021-03-25 Outpatient R [facility] [id number] Univers 15:00:00 15:00:00 ity [facility] 2021-01-22 2021-01-22 [facility] [id number] Univers 18:21:26 23:59:00 Encounter [facility] [id number] ity of [place] [id number] Isreal as Abhay?Blea [id number] Ar teresaluis miguel allegra [address] Medical Office [facility] 2021-01-22 2021-01-22 Urgent [facility] 1.2.840.114 [id number] Univers 18:06:16 18:45:02 Care [facility] [id number] it y of [place] [id number] Isreal as Abhay?Blea [phone] Ar nicol [address] Medical Office Building 2021-01-22 2021-01-22 Outpatient [facility] [id number] Univers 18:20:00 18:20:00 [id number] ity [facility] 2021-01-22 2021-01-22 Outpatient R DAMION, [facility] [id number] Univers 18:20:00 18:20:00 [facility] 2021-01-21 2021-01-21 Emergency Ibikunle, TRAUMA 1.2.840.114 [id number] Univers 09:51:00 14:26:00 [facility] [id number] [id number] [id number] [address] 2021-01-21 2021-01-21 Emergency X IBIKUNLE, [facility] [[email or web address]] ERT [id number] Univers 09:51:00 14:26:00 [place] [facility] 2021-01-14 2021-01-14 Outpatient [facility] [id number] Univers 18:00:00 18:00:00 [id number] [facility] 2021-01-14 2021-01-14 Outpatient R UNKNOWN, [facility] [id number] Univers 18:00:00 18:00:00 ATTENDING [facility] 2020-11-04 2020-11-04 Outpatient R RADIOLOGY [facility] [id number] Univers 00:00:00 00:00:00 [id number] [facility] 2020-10-23 2020-10-23 Outpatient R DARREL, [facility] [id number] Univers 10:00:00 10:00:00 DAYSI [id number] [facility] 2020-10-15 2020-10-15 Outpatient R RADIOLOGY [facility] [id number] Univers 10:20:00 10:20:00 [id number] [facility] 2020-06-18 2020-06-18 Patient Rory [facility] [[email or web address]] 1.2.840.114 [id number] Univers 00:00:00 00:00:00 Outreach Dwaine PRIMARY [id number] i ty of [facility] [id number] [place] [facility] [phone] Me dical [address] 2020-02-05 2020-02-05 Hospital Radiology [facility] [[email or web address]] 1.2.840.114 [id number] Univers 09:14:41 23:59:00 Encounter [place] [id number] ity [id number] [place] [id number] [facility] 8[address] Branch 2020-02-05 2020-02-05 Outpatient [facility] [id number] Univers 10:30:00 10:30:00 ity of [facility] 2020-02-05 2020-02-05 Hospital Radiology [facility] [[email or web address]] 1.2.840.114 [id number] Univers 09:14:00 09:14:00 Encounter [place] [id number] ity [place] [id number] [place] [id number] [facility] [address] 2020-02-05 2020-02-05 Outpatient R RADIOLOGY [facility] [id number] Univers 00:00:00 00:00:00 ity of [facility] 2020-02-03 2020-02-03 Orders Doctor ARIAS 1.2.840.114 [id number] Univers 00:00:00 00:00:00 Only Unassigned, KEVIN [id number] ity of [place] [facility] 4.2.7.2.686 Isreal [id number] [facility] [address] [place] 2020-01-20 2020-01-20 Outpatient R [facility] [id number] Univers 17:20:00 17:20:00 [id number] ity of [facility] 2020-01-20 2020-01-20 [facility] [id number] Univers 17:20:00 17:20:00 ARINA ity of [facility] 2020-01-20 2020-01-20 [facility] 1.2.840.114 [id number] Univers 00:00:00 00:00:00 Daysi Alvarez [id number] it[id number] [id number] Ar dical nal [address] [facility] 2019-10-24 2019-10-24 Telemedici [facility] 1.2.840.114 [id number] Univers 08:24:11 15:33:52 ne Visit Daysi [place] [id number] it[place] [id number] [phone] Ar dical nal [address] [facility] 2019-10-24 2019-10-24 Outpatient R DARREL [facility] [id number] Univers 14:20:00 14:20:00 [facility] 2019-10-24 2019-10-24 Outpatient R ROJO [facility] [id number] Univers 11:00:00 11:00:00 DAYSI [id number] ity [facility] 2019-10-24 2019-10-24 Outpatient R DARREL [facility] [id number] Univers 11:00:00 11:00:00 [facility] 2019-10-21 2019-10-21 Outpatient R ROJO [facility] [id number] Univers 13:40:00 13:40:00 [facility] 2019-09-30 2019-09-30 Outpatient R ROJO [facility] [id number] Univers 10:40:00 10:40:00 [facility] [id number] [facility] 2019-09-30 2019-09-30 Outpatient R ROJO [facility] [id number] Univers 10:40:00 10:40:00 DAYSI [facility] 2019-05-19 2019-05-19 Urgent Yohana Vu [facility] [[email or web address]] 1.2.840.114 [id number] Univers 20:43:21 21:52:43 Care Unknown, Attending Health [id number] ity of Surgical [id number] Isreal as Specialti [phone] Ar dical es 370 [facility] 2019-05-07 2019-05-07 [facility] 1.2.840.114 [id number] Univers 00:00:00 00:00:00 Secure Msg Daysi A [place] [id number] it[id number] [id number] Ar dical [address] 2019-04-23 2019-04-23 [facility] [id number] Univers 14:54:24 23:59:00 DAYSI ity of [facility] 2019-04-23 2019-04-23 [facility] 1.2.840.114 [id number] Univers 14:54:00 23:59:00 Encounter Daysi A [place] [id number] ity of [id number] [id number] [facility] [address] 2019-04-23 2019-04-23 [facility] 1.2.840.114 [id number] Univers 14:53:00 14:53:00 Encounter Daysi A [place] [id number] ity [id number] [id number] [facility] [address] 2019-04-23 2019-04-23 [facility] 1.2.840.114 [id number] Univers 08:26:00 14:52:00 Encounter Daysi A [place] [id number] ity of [place].2.[place] [id number] [facility] [address] 2019-04-23 2019-04-23 [facility] 1.2.840.114 [id number] Univers 08:00:00 08:25:00 Encounter Daysi A [place] [id number] ity [place].2.[place] [id number] [place] [address] Branch 2019-04-18 2019-04-18 [facility] 1.2.840.114 [id number] Univers 00:00:00 00:00:00 Daysi Alvarez [id number] ity of [place] 4.2.7.2.686 Olivia yarbrough Professio [id number] Me dical nal [address] Building 2018-11-03 2018-11-03 Urgent Joseph Sharp [facility] [[email or web address]] 1.2.840.11 [id number] Univers 14:19:51 14:56:56 Care Unknown, Attending Health [id number] ity of Surgical 4.2.7.2.686 Isreal as Specialti [phone] Me dical es [address] [place] Results Test Description Test Time Test Comments Results Result Comments Source TROPONIN I 2021-01-21 18:32:29 Test Item Value Reference Range Interpretation Comme nts TROPONIN I (test code = 0.002 ng/mL See_Comment [Au tomated message] The [id number]) system which ge nerated this result tra nsmitted reference range : <=0.034. The reference r [place] was not used to int erpret this result as normal/abnormal . ANN (test code = ANN) Reference (Normal) Range (defined by the 99th percentile reference limit): <= 0.034 ng/mL Note: Cardiac troponin begins to rise 3-4 hours after the onset of ischemia. Repeat in 4-6 hours if the sample was drawn within 3-4 hours of the onset of the symptom and found normal. Diagnosis of myocardial injury is made with acute changes in cTn concentrations with at least one serial sample above the 99th percentile upper reference limit (URL), taken together with the patient's clinical presentation. Biotin has been reported to cause a negative bias, interpret results relative to patient's use of biotin. Lab Interpretation Normal (test code = 18367-3) [facility] STIMULATING [id number] 16:44:53 Test Item Value Reference Range Interpretation Comments TSH (test code = See_Comment [Automated message] [id number]) The system nGame generated this result transmitted ref erence range: 0.45 - 4 .70 mIU/L. The refe rence range was not u sed to interpret this result as normal/abnor mal. Lab Interpretation (test Normal code = 13721-0) [facility]FREE [id number] 16:31:34 Test Item Value Reference Range Interpretation Comments FREE T4 (test code = See_Comment [Autom ated message] [id number]) The system nGame generated this result transmitted ref erence range: 0.78 - 2 .20 ng/dL:. The ref erence range was not u sed to interpret this result as normal/abnor mal. Lab Interpretation (test Normal code = 90173-9) [facility] SouthN-TERMINAL [id number] 16:26:33 Test Item Value Reference Range Interpretation Comments NT-proBNP (test code 23 pg/mL See_Comment [Autom ated = [id number]) message] The system which generated this result transmitted reference range : <=125. The reference range was not used to interpret this result as normal/abnormal . ANN (test code = ANN) Biotin has been reported to cause a negative bias, interpret results relative to patient's use of biotin. Lab Interpretation Normal (test code = 97069-0) [facility] SouthTROPONIN [id number] 16:26:33 Test Item Value Reference Interpretation Comments Range TROPONIN I (test 0.002 ng/mL See_Comment [Automated code = 9809686822) message] The system which generated this result transmitted reference range : <=0.034. The reference range was not used to interpret this result as normal/abnormal . ANN (test code = Reference (Normal) ANN) Range (defined by the 99th percentile reference limit): <= 0.034 ng/mL Note: Cardiac troponin begins to rise 3-4 hours after the onset of ischemia. Repeat in 4-6 hours if the sample was drawn within 3-4 hours of the onset of the symptom and found normal. Diagnosis of myocardial injury is made with acute changes in cTn concentrations with at least one serial sample above the 99th percentile upper reference limit (URL), taken together with the patient's clinical presentation. Biotin has been reported to cause a negative bias, interpret results relative to patient's use of biotin. Lab Interpretation Normal (test code = 55266-2) [facility] SouthLIPASE2021-10-21 16:11:10 Test Item Value Reference Range Interpretation Comments LIPASE (test code = 5543917454) 69 U/L 0-220 Lab Interpretation (test code = Normal 51583-3) [facility]. METABOLIC PANEL ([id number])2021-01-21 16:11:10 Test Item Value Reference Range Interpretation Comments NA (test code = 137 mmol/L 135-145 5873008754) K (test code = 4.3 mmol/L 3.5-5.0 5840524298) CL (test code = 105 mmol/L 98-108 2022379062) CO2 TOTAL (test code = 22 mmol/L 23-31 L 3541163579) AGAP (test code = 2-16 0942510975) BUN (test code = 12 mg/dL 7-23 7606626005) GLUCOSE (test code = 92 mg/dL 70-110 5266985150) CREATININE (test code = 0.79 mg/dL 0.50-1.04 4975595835) TOTAL BILI (test code = 0.3 mg/dL 0.1-1.9 1663282846) CALCIUM (test code = 8.7 mg/dL 8.6-10.6 9893214386) T PROTEIN (test code = 7.0 g/dL 6.3-8.2 1273921779) ALBUMIN (test code = 4.1 g/dL 3.5-5.0 9968369249) ALK PHOS (test code = 53 U/L 34-122 3432032565) ALTv (test code = 26 U/L 5-35 1742-6) AST(SGOT) (test code = 30 U/L 13-40 6664984034) eGFR (test code = mL/min/1.73m2 6227037582) ANN (test code = ANN) Association of Glomerular Filtration Rate (GFR) and Staging of Kidney Disease* + --+ --+ ------+| GFR (mL/min/1.73 m2) ?| With Kidney Damage ?| ?Without Kidney Damage+ --------+ --------+ +| ?>90 ?| ?Stage one ?| ? Normal ?+ ---+ ---+ -------+| ?60-89 ?| ?Stage two ?| ? Decreased GFR ? + --+ --+ ------+| ?30-59 ?| ?Stage three ?| ? Stage three ? + --+ --+ ------+| ?15-29 ?| ?Stage four ? | ? Stage four ?+ ---+ ---+ -------+| ?<15 (or dialysis) ? ?| ?Stage five ? | ? Stage five ?+ ---+ ---+ -------+ *Each stage assumes the associated GFR level has been in effect for at least three months. ?Stages 1 to 5, with or without kidney disease, indicate chronic kidney disease. Notes: Determination of stages one and two (with eGFR >59mL/min/1.73 m2) requires estimation of kidney damage for at least three months as defined by structural or functional abnormalities of the kidney, manifested by either:Pathological abnormalities or Markers of kidney damage (including abnormalities in the composition of the blood or urine or abnormalities in imaging tests). Lab Interpretation Abnormal (test code = 42095-2) [facility] SouthD-[id number] 16:05:51 Test Item Value Reference Interpretation Comments Range D-DIMER (test code = See_Comment [Autom ated 4087241721) message] The system which generated this result transmitted reference range : <0.50 ?g/mL (FEU). The reference range was not used to interpret this result as normal/abnormal . ANN (test code = This test may be ANN) used in conjunction with a clinical pretest probability (PTP) assessment model to exclude venous thromboembolism (VTE) in patients suspected of deep venous thrombosis (DVT) and pulmonary embolism (PE) A D-Dimer value less than 0.50 ?g/ml (FEU) has a negative predicative value of 96 to 100% (95% CI)and 97 to 100% (95% CI) as an aid in the diagnosis of deep vein thrombosis (DVT) and pulmonary embolism when there is low or moderate pretest probability of PE or DVT. D-Dimer values are expressed in initial fibrinogen equivalent units (FEU)" The assay results should be used with other information, including the clinical context, in forming a diagnosis. Lab Interpretation Normal (test code = 48809-7) [facility] WITH [id number] 15:58:50 Test Item Value Reference Range Interpretation Comments WBC (test code = See_Comment [Automated 6690-2) message] The sy stem which generated this result transmitted reference range : 4.30 - 11.10 10*3/?L. The reference range was not used to interpret this result as normal/abnormal . RBC (test code = See_Comment H [Automated 789-8) message] The sy stem which generated this result transmitted reference range : 3.93 - 5.25 10*6/?L. The reference range was not used to interpret this result as normal/abnormal . HGB (test code = 13.4 g/dL 11.6-15.0 718-7) HCT (test code = 41.5 % 35.7-45.2 4544-3) MCV (test code = 73.8 fL 80.6-95.5 L 787-2) MCH (test code = 23.8 pg 25.9-32.8 L 785-6) MCHC (test code = 32.3 g/dL 31.6-35.1 786-4) RDW-SD (test code = 38.5 fL 39.0-49.9 L 56118-9) RDW-CV (test code = 14.5 % 12.0-15.5 788-0) PLT (test code = See_Comment [Automated 777-3) message] The sy stem which generated this result transmitted reference range : 166 - 358 10*3/ ?L. The reference r neville was not used to interpret this result as normal/abnormal . MPV (test code = 9.6 fL 9.5-12.9 01484-7) NRBC/100 WBC (test See_Comment [Automat ed code = 8698725634) message] The system which generated this result transmitted reference range : 0.0 - 10.0 /100 WBCs. The refer ence range was not u sed to interpret th is result as normal/abnormal . NRBC x10^3 (test code <0.01 See_Comment [Auto mated = 9402100842) message] The s ystem which generated this result transmitted reference range : 10*3/?L. The reference range was not used to interpret this result as normal/abnormal . GRAN MAT (NEUT) % 78.2 % (test code = 770-8) IMM GRAN % (test code 0.30 % = 3764273551) LYMPH % (test code = 15.1 % 736-9) MONO % (test code = 4.8 % 5905-5) EOS % (test code = 1.3 % 713-8) BASO % (test code = 0.3 % 706-2) GRAN MAT x10^3(ANC) 7.84 10*3/uL 1.88-7.09 H (test code = 5256090972) IMM GRAN x10^3 (test 0.03 10*3/uL 0.00-0.06 code = 7551333306) LYMPH x10^3 (test code 1.51 10*3/uL 1.32-3.29 = 731-0) MONO x10^3 (test code 0.48 10*3/uL 0.33-0.92 = 742-7) EOS x10^3 (test code = 0.13 10*3/uL 0.03-0.39 711-2) BASO x10^3 (test code 0.03 10*3/uL 0.01-0.07 = 704-7) Lab Interpretation Abnormal (test code = 32433-9) [facility] SouthPOCT [id number] 15:53:00 Test Item Value Reference Range Interpretation Comments On board controls acceptable with negative C Line (test code = 3574) POCT PREG LOT # (test code = 3575) [id number] POCT PREG TEST DATE (test 05/03/2022 code = 3576) Lab Interpretation (test code = Normal 67020-4) [facility] SouthMR [facility] LEFT WO [id number] 20:37:44 Changes of Achilles tendon repair with partial thickness interstitial tearof the Achilles tendon. Mild flexor tenosynovitis with a split tear of the flexor digitorum tendonand partial tear of the flexor hallucis longus tendon. Peroneus longus tendinopathy. Chronic multi ligamentous injury. EXAM: MRI LEFT ANKLE HISTORY: Spontaneous rupture of tendons, fall January 16 COMPARISON: Radiographs 02/05/2020 TECHNIQUE AND FINDINGS: 3T OR 1.5T multiplanar multiweighted MR imaging of the left ankle wasperformed without IV contrast. BONE AND JOINT: Changes of prior Achilles tendon repair are seen with fixation screws inthe posterior calcaneus. Mild marrow edema is seen in the posteriorcalcaneus. No jointeffusion is identified. LIGAMENTS AND TENDONS:The distal Achilles tendon is diffusely thickened and intermediate insignal intensity. Interstitial fluid signal intensity is seen in theAchilles tendon cranial to the its insertion and at the level of itsinsertion on the calcaneus. The extensor tendons are unremarkable. The peroneus longus tendon is thickened and intermediate in signalintensity. The peroneus brevis tendon is intact. Fluid is seen within the posterior tibialis, flexor digitorum and flexorhallucis longus tendon sheaths. The flexor digitorum tendon appears splitjust distal to the medial malleolus. The flexor hallucis longus tendon isattenuated as it courses posterior to the tibia and a Stieda process. The anterior talofibular ligament is severely attenuated. Thecalcaneofibular ligament is thickened and intermediate in signal intensity.The deltoid, syndesmotic and posterior talofibular ligaments are intact. SOFT TISSUES:Mild edema is seen in the pre-Achilles fat with trace fluid accumulating inthe retrocalcaneal bursa. [facility], Radiant Results Inft User - 02/05/2020 2:38 PM CSTEXAM:MRI LEFT ANKLEHISTORY: Spontaneous rupture of tendons, fall January 16COMPARISON: Radiographs 02/05/2020TECHNIQUE AND FINDINGS:3T OR 1.5T multiplanar multiweighted MR imaging of the left ankle wasperformed without IV contrast.BONE AND JOINT: Changes of prior Achilles tendon repair are seen with fixation screws inthe posterior calcaneus. Mild marrow edema is seen in the posteriorcalcaneus.No joint effusion is identified.LIGAMENTS AND TENDONS:The distal Achilles tendon is diffusely thickened and intermediate insignal intensity. Interstitial fluid signal intensity is seen in theAchilles tendon cranial to the its insertion and at the level of itsinsertion on the calcaneus.The extensor tendons are unremarkable.The peroneus longus tendon is thickened and intermediate in signalintensity. The peroneus brevis tendon is intact.Fluid is seen within the posterior tibialis, flexor digitorum and flexorhallucis longus tendon sheaths. The flexor digitorum tendon appears splitjust distal to the medial malleolus. The flexor hallucis longus tendon isattenuated as it courses posterior to the tibia and a Stieda process.The anterior talofibular ligament is severely attenuated. Thecalcaneofibular ligament is thickened and intermediate in signal intensity.The deltoid, syndesmotic and posterior talofibular ligaments are in tact.SOFT TISSUES:Mild edema is seen in the pre-Achilles fat with trace fluid accumulating inthe retrocalcaneal bursa.IMPRESSIONChanges of Achilles tendon repair with partial thickness interstitial tearof the Achilles tendon.Mild flexor tenosynovitis with a split tear of the flexor digitorum tendonandpartial tear of the flexor hallucis longus tendon.Peroneus longus tendinopathy.Chronic multi ligamentous injury.[facility]XR [facility] VW LEFT 2020-02-05 16:45:14 Changes of prior Achilles tendon repair with distal Achilles tendonthickening and swelling. Soft tissue swelling over the posterior ankle, heel and lateral midfoot. Preliminary Report Dictated by Resident: Salma Rajan MD., have reviewed this study and agree with the abovereport.EXAM: XR ANKLE 3+ VW LEFT HISTORY: 39 years-old Female with re- injury and spontaneous rupture ofother tendons. COMPARISON: None. FINDINGS: Radiographs of the left ankle demonstrate a subcentimeter osseous fragmentis seen along the calcaneus at the expected achilles insertion site.Plantar enthesophyte noted. ?Joint spaces are preserved. Alignment iswithin normal limits. Soft tissue swelling over the posterior ankle, heeland lateral midfoot. The distal Achilles tendon is thickened and indistinctwith edema in the pre- Achilles fat. Lucent tracks from Achilles tendonrepair are seen in the posterior calcaneus. [facility], Radiant Results Inft User - 02/05/2020 10:46 AM CSTEXAM: XR ANKLE 3+ VW LEFTHISTORY: 39 years-old Female with re-injury and spontaneous rupture ofother tendons.COMPARISON: None.FINDINGS: Radiographs of the left ankle demonstrate a subcentimeter osseous fragmentis seen along the calcaneus at the expected achilles insertion site.Plantar enthesophyte noted. Joint spaces are preserved. Alignment iswithin normal limits. Soft tissue swelling over the posterior ankle, heeland lateral midfoot. The distal Achilles tendon is thickened and indistinctwith edema in the pre-Achilles fat. Lucent tracksfrom Achilles tendonrepair are seen in the posterior calcaneus.IMPRESSIONChanges of prior Achilles tendon repair with distal Achilles tendonthickening and swelling.Soft tissue swelling over the posterior ankle, heel and lateral midfoot.Preliminary Report Dictated by Resident: Salma Strange MD., have reviewed this study and agree with the abovereport.[facility] FLU A AND B (MOLECULAR)2019-05-20 03:04:00 Test Item Value Reference Range Interpretation Comments POCT INFLUENZA A (test neg Negative - code = 3840) Negative POCT INFLUENZA B (test neg Negative - code = 3841) Negative ANN (test code = ANN) accurate development and interpretation of all internal controls Lab Interpretation Normal (test code = 14679-3) [facility] FLU A AND B (MOLECULAR)2019-05-20 03:04:00 Test Item Value Reference Range Interpretation Comments POCT INFLUENZA A (test neg Negative - code = 3840) Negative POCT INFLUENZA B (test neg Negative - code = 3841) Negative ANN (test code = ANN) accurate development and interpretation of all internal controls Lab Interpretation Normal (test code = 86217-6) [facility] FLU A AND B (MOLECULAR)2019-05-20 03:04:00 Test Item Value Reference Range Interpretation Comments POCT INFLUENZA A (test neg Negative - code = 3840) Negative POCT INFLUENZA B (test neg Negative - code = 3841) Negative ANN (test code = ANN) accurate development and interpretation of all internal controls Lab Interpretation Normal (test code = 52565-7) [facility] GRP A STREP (MOLECULAR)2019-05-20 02:57:00 Test Item Value Reference Range Interpretation Comments POCT GP A STREP (test neg Negative - code = 89091-9) Negative ANN (test code = ANN) accurate development and interpretation of all internal controls Lab Interpretation Normal (test code = 93187-3) [facility] GRP A STREP (MOLECULAR)2019-05-20 02:57:00 Test Item Value Reference Range Interpretation Comments POCT GP A STREP (test neg Negative - code = 93567-8) Negative ANN (test code = ANN) accurate development and interpretation of all internal controls Lab Interpretation Normal (test code = 87424-0) [facility] GRP A STREP (MOLECULAR)2019-05-20 02:57:00 Test Item Value Reference Range Interpretation Comments POCT GP A STREP (test neg Negative - code = 05676-2) Negative ANN (test code = ANN) accurate development and interpretation of all internal controls Lab Interpretation Normal (test code = 48331-2) [facility] ULTRASOUND BREAST LIMITED BILATERAL 2019-04-23 22:20:37Examination:BI ULTRASOUND BREAST LIMITED BILATERAL History:Patient is 38 year old and is seen for: ?Mass felt on right side of breast, possible fibrous tissue, please evaluate further. us ordered if needed, if radiologist wants after mmg is done.. ? Comparisons: 04/23/2019 BI DIAGNOSTIC MAMMOGRAM BILATERAL HISTORY:1. Abnormal mammogram and history of palpable mass in right breast.2. Abnormal left breast mammogram. TECHNIQUE: Upper-outer quadrant of the left breast as well as right breast were evaluated in radial/antiradial/sagittal/coronal planes both by the technologist and by me. Female technologist was present in the room during all imaging evaluations. FINDINGS: RIGHT BREAST ULTRASOUND: Dense fibroglandular breast tissue is detected throughout. Hypoechoic 2.7 x 1.3 mm lesion at 12:00 is consistent with small benign lesion, possibly a small cyst. Technologist measured on the oval- shaped 7.3 x2.8 mm abnormality at 12:00 which appeared to be normal fibroglandular tissue during my evaluation. No discrete solid mass detected by myself or by the technologist evaluation. LEFT BREAST ULTRASOUND: Dense fibroglandular tissue is detected throughout. No worrisome solid mass is detected. An oval-shaped 4.6 x 2.3 mm cystic lesion was noted at 12:00. Another 2.6 mm cystic lesion at 2:00 2 cm from the nipple, 2 small cystic lesions located close to each other at 2:00, each measuring 2 mm and 3 mm in size, 4 cm from the nipple. CONCLUSIONS: No worrisome solid masses detected in upper outer quadrant ofthe right breast or left breast. Findings were discussed and the images were reviewed with the patient. Annual bilateral mammography evaluation is appropriate. ACR classification: Category II. Recommendation:Annual mammographic follow-up - Bilateral ? BI-RADS Category: Both 2 - Benign [facility] DIAGNOSTIC MAMMOGRAM [id number] 22:15:23Examination:BI DIAGNOSTIC MAMMOGRAM BILATERAL History:Patient is 38 year old and is seen for: ?Mass felt on right side of breast, possible fibrous tissue, please evaluate further.. Computer-aided detection (CAD) utilized. Comparisons : None available Findings:The breasts are heterogeneously dense, which may obscure small masses. LeftThere is a focal asymmetry seen in the upper outer quadrant of the left breast in the posterior depth. RightThere is a focal asymmetry seen in the upper outer quadrantof the right breast in the middle depth. Impression:Prominent asymmetrical changes in upper outer RIGHT as well as LEFT breast, most likely normal dense breast tissue. Ultrasound studies recommended to rule out any solid mass. Recommendation:Ultrasound - RightUltrasound - Left BI-RADS Category: Left: 0 - Incomplete: Needs Additional Imaging EvaluationRight: 0 - Incomplete: Needs Additional Imaging EvaluationOverall: 0 - Incomplete: Needs Additional [facility] EvaluationUnP[facility]
[2021-10-26] MEDS ORDERED: HYDROCODONE/APAP 10/325 TAB ONE (14:30)
--- NOTE | 2021-10-26 15:26 | RAD REPORT ---
EXAM DESCRIPTION: RAD - Ankle Right 3 View - 10/26/2021 3:15 pm CLINICAL HISTORY: PAIN COMPARISON: No comparisons FINDINGS: No fracture, dislocation or periosteal reaction. No joint effusion seen. Tibiotalar joint space is narrowed slightly. There degenerative changes along the articular margins of the tibiotalar joint space. No subtalar abnormality identifiable. Patient has large plantar and Achilles tendon spur s off of the calcaneus. Soft tissues around the ankle are prominent. No foreign body or air in the soft tissues. IMPRESSION: Right ankle degenerative change as detailed. No acute bone or joint finding. Ankle soft tissue swelling.
--- NOTE | 2021-10-26 17:35 | RAD REPORT ---
EXAM DESCRIPTION: MRI - Ankle Right Wo Cont - 10/26/2021 5:12 pm CLINICAL HISTORY: achilles pain COMPARISON: Ankle Right 3 View dated 10/26/2021 TECHNIQUE: Multi planer imaging of the ankle using T1 weighted, proton density, T2 fat saturation an d T2 stir sequencing. FINDINGS: No occult fracture, bone bruise or marrow replacing process. Tibiotalar joint space is kenny rowed slightly with marginal spurring. Subtalar ligament and subtalar joint space unremarkable. There is minimal fluid in the posterior aspect of the talocalcaneal joint space. Achilles tendon shows no partial-thickness or full-thickness tear. No thickening, signal abnormality or adjacent abnormal fluid collection. No plantar abnormality seen. The anterior and posterior tibiofibular and talofibular ligaments appear to be intact. No abnormal ed evelyn in the adjacent soft tissues. Calcaneofibular ligament is intact. No evidence for medial ligament complex injury. Tendons of the ankle show normal size and signal intensity. No skeletal muscle abnormality. No suspic ious edema in the soft tissues. IMPRESSION: MRI of the ankle shows no acute or suspicious finding.
--- NOTE | 2021-10-26 17:49 | EDPHYS ---
Physician Documentation [facility] Name: Ana Pulliam Age: 40 yrs Sex: Female : 1980 Arrival Date: 10/26/2021 Time: 14:07 Bed 9 Private MD: ED Physician Juvencio Saldivar HPI: 10/26 14:21 This 40 yrs old Female presents to ER via Ambulatory with complaints of Ankle Injury. pm1 14:21 The patient presents with pain, that is acute. The complaints affect the right pm1 Achilles. Onset: The symptoms/episode began/occurred last night. Context: The problem was sustained at home, resulted from the patient tripping, over a pet, The patient can partially bear weight on the affected extremity. the patient is able to ambulate, with moderate difficulty. 14:21 Associated signs and symptoms: Pertinent negatives: calf tenderness, numbness, pm1 swelling, tingling. Modifying factors: The symptoms are alleviated by nothing, the symptoms are aggravated by nothing. Severity of symptoms: in the emergency department the symptoms are unchanged. The patient has experienced a previous episode, Similar to her Achilles tendon injury to other leg. The patient has not recently seen a physician. 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 - Social history:: Smoking status: Patient denies any tobacco usage or history of. ROS: 14:21 Constitutional: Negative for fever, chills, and weight loss, Cardiovascular: Negative pm1 for chest pain, palpitations, and edema, Respiratory: Negative for shortness of breath, cough, wheezing, and pleuritic chest pain. 14:21 Skin: Negative for injury, rash, and discoloration, Neuro: Negative for headache, weakness, numbness, tingling, and seizure. 14:21 MS/extremity: Positive for pain, of the right Achilles. 14:21 All other systems are negative. Exam: 14:21 Constitutional: This is a well developed, well nourished patient who is awake, alert, pm1 and in no acute distress. Head/Face: Normocephalic, atraumatic. 14:21 Skin: Warm, dry with normal turgor. Normal color with no rashes, no lesions, and no evidence of cellulitis. 14:21 Cardiovascular: Exam negative for acute changes, Rate: normal, Rhythm: regular, Pulses: no pulse deficits are appreciated. 14:21 Respiratory: Exam negative for acute changes, respiratory distress, shortness of breath, Breath sounds: are clear throughout. 14:21 Musculoskeletal/extremity: Extremities: grossly normal except: noted in the right Achilles: tenderness, There is no evidence of decreased ROM, Negative Kowalski test, ROM: full active range of motion, in the right ankle, full passive range of motion, in the right ankle. 14:21 Neuro: Exam negative for acute changes, Orientation: is normal, Mentation: is normal, Motor: is normal, moves all fours. Vital Signs: 14:18 BP 162 / 97; Pulse 105; Resp 18; Temp 98.1; Pulse Ox 100% on R/A; Weight 112.04 kg; hb Height 5 ft. 5 in. (165.10 cm); Pain 7/10; 14:48 BP 129 / 88; Pulse 90; Resp 18; Pulse Ox 99% on R/A; Height 5 ft. 9 in. (175.26 cm); eh3 Pain 6/10; 17:34 BP 136 / 85; Pulse 86; Resp 18; Pulse Ox 99% on R/A; ld1 18:26 BP 117 / 70; Pulse 99; Resp 18; Pulse Ox 100% ; ld1 14:48 Body Mass Index 36.48 (112.04 kg, 175.26 cm) eh3 MDM: 14:23 Patient medically screened. pm1 17:46 Data reviewed: vital signs. Data interpreted: Pulse oximetry: on room air is 99 %. pm1 Interpretation: normal. Counseling: I had a detailed discussion with the patient and/or guardian regarding: the historical points, exam findings, and any diagnostic results supporting the discharge/admit diagnosis, radiology results, the need for outpatient follow up, to return to the emergency department if symptoms worsen or persist or if there are any questions or concerns that arise at home. 10/26 14:20 Order name: Ankle Right 3 View XRAY; Complete Time: 15:28 pm1 10/26 14:21 Order name: Crutches; Complete Time: 14:53 pm1 10/26 15:36 Order name: Ankle Right Wo Cont; Complete Time: 17:46 EDMS 10/26 17:46 Order name: Splint - Ankle: Orthoglass: Tatyp; Complete Time: 18:26 pm1 Administered Medications: 14:23 Drug: [place] (HYDROcodone-acetaminophen) 10 mg-325 mg 1 tabs Route: PO; hb 17:34 Follow up: Response: No adverse reaction ld1 Disposition Summary: 10/26/21 17:48 Discharge Ordered Location: Home pm1 Problem: new pm1 Symptoms: have improved pm1 Condition: Stable pm1 Diagnosis - Sprain of unspecified ligament of right ankle pm1 Followup: pm1 - With: Emergency Department - When: As needed - Reason: Worsening of condition Followup: pm1 - With: Private Physician - When: 2 - 3 days - Reason: Recheck today's complaints, Continuance of care, Re-evaluation by your physician Discharge Instructions: - Discharge Summary Sheet pm1 - Ankle Sprain pm1 - Cast or Splint Care, Adult pm1 - Crutch Use, Adult pm1 Forms: - Medication Reconciliation Form pm1 - Thank You Letter pm1 - Antibiotic Education pm1 - Prescription Opioid Use pm1 Prescriptions: - Tylenol-Codeine #3 300 mg-30 mg Oral - take 2 tablet by ORAL route every 6 hours As needed; 20 tablet; Refills: 0, pm1 Product Selection Permitted Signatures: Dispatcher [employer] EDMS Kash Cornelius, BUSINESS SERVICES INTERN BUSINESS SERVICES INTERN pm1 Zandra Davenport RN RN Lakeshia Dillard RN ld1 Corrections: (The following items were deleted from the chart) 14:14 14:11 IV Saline Lock ordered. pm1 pm1 14:16 14:12 Extremity Venous Uni Ltd+US.RAD.BRZ ordered. EDMS EDMS 14:16 14:12 Ankle Left 3 View+RAD.RAD.BRZ ordered. EDMS EDMS 14:16 14:12 Knee Right 3 View+RAD.RAD.BRZ ordered. EDMS EDMS 14:18 14:12 CBC+H.LAB.BRZ ordered. EDMS EDMS 14:18 14:12 COMPREHENSIVE METABOLIC PANEL+C.LAB.BRZ ordered. EDMS EDMS
--- NOTE | 2021-10-26 17:49 | ER ---
Nurse's Notes [facility] Name: Ana Pulliam Age: 40 yrs Sex: Female : 1980 Arrival Date: 10/26/2021 Time: 14:07 Bed 9 Private MD: Diagnosis: Sprain of unspecified ligament of right ankle Presentation: 10/26 14:18 Chief complaint: Right ankle pain that radiates to calf since last night. Coronavirus hb screen: At this time, the client does not indicate any symptoms associated with coronavirus-19. Ebola Screen: No symptoms or risks identified at this time. Initial Sepsis Screen: Does the patient meet any 2 criteria? No. Patient's initial sepsis screen is negative. Does the patient have a suspected source of infection? No. Patient's initial sepsis screen is negative. Risk Assessment: Do you want to hurt yourself or someone else? Patient reports no desire to harm self or others. Onset of symptoms was October 25, 2021. 14:18 Method Of Arrival: Ambulatory hb 14:18 Acuity: PRAVEEN 4 hb Triage Assessment: 14:20 General: Appears in no apparent distress. Behavior is calm, cooperative. Pain:. Neuro: hb Level of Consciousness is awake, alert, obeys commands, Oriented to person, place, time, situation. Cardiovascular: Patient's skin is warm and dry. Respiratory: Respiratory effort is even, unlabored, Respiratory pattern is regular, symmetrical. 14:28 Musculoskeletal: Range of motion: intact in all extremities, Swelling present in right eh3 ankle. 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 - Social history:: Smoking status: Patient denies any tobacco usage or history of. Screenin:34 Abuse screen: Denies threats or abuse. Denies injuries from another. Nutritional eh3 screening: No deficits noted. Tuberculosis screening: No symptoms or risk factors identified. Fall Risk Gait- Impaired (20 pts.). Assessment: 14:34 Reassessment: No changes from previously documented assessment. See triage assessment. eh3 General: Appears in no apparent distress. uncomfortable, Behavior is calm, cooperative, appropriate for age. Pain: Complains of pain in right Achilles, right heel and right ankle Pain radiates to right calf Pain currently is 7 out of 10 on a pain scale. Quality of pain is described as burning, radiating, sharp, shooting, tender, Pain began at 0200 today Is continuous, Alleviated by rest, repositioning, Aggravated by increased activity, weight bearing. Neuro: Level of Consciousness is awake, alert, obeys commands, Oriented to person, place, time, situation. Cardiovascular: Capillary refill < 3 seconds Patient's skin is warm and dry. Respiratory: Airway is patent Respiratory effort is even, unlabored. GI: No signs and/or symptoms were reported involving the gastrointestinal system. : No signs and/or symptoms were reported regarding the genitourinary system. EENT: No signs and/or symptoms were reported regarding the EENT system. Derm: No signs and/or symptoms reported regarding the dermatologic system. Musculoskeletal: Capillary refill < 3 seconds, in bilateral toes. Range of motion: intact in all extremities, Swelling present in right ankle. Vital Signs: 14:18 BP 162 / 97; Pulse 105; Resp 18; Temp 98.1; Pulse Ox 100% on R/A; Weight 112.04 kg; hb Height 5 ft. 5 in. (165.10 cm); Pain 7/10; 14:48 BP 129 / 88; Pulse 90; Resp 18; Pulse Ox 99% on R/A; Height 5 ft. 9 in. (175.26 cm); eh3 Pain 6/10; 17:34 BP 136 / 85; Pulse 86; Resp 18; Pulse Ox 99% on R/A; ld1 18:26 BP 117 / 70; Pulse 99; Resp 18; Pulse Ox 100% ; ld1 14:48 Body Mass Index 36.48 (112.04 kg, 175.26 cm) eh3 ED Course: 14:07 Patient arrived in ED. mr 14:10 Kash Cornelius NP is PHCP. pm1 14:10 Juvencio Saldivar MD is Attending Physician. pm1 14:20 Triage completed. hb 14:20 Arm band placed on. hb 14:28 Arlet Valente is Primary Nurse. eh3 14:34 Patient has correct armband on for positive identification. Bed in low position. Call eh3 light in reach. Side rails up X2. Door closed. Noise minimized. Lights dimmed. Pillow given. 15:17 Ankle Right 3 View XRAY In Process Unspecified. EDMS 17:12 Ankle Right Wo Cont In Process Unspecified. EDMS 18:26 No provider procedures requiring assistance completed. Patient did not have IV access ld1 during this emergency room visit. Orthoglass splint: stirrup splint applied on left leg. Administered Medications: 14:23 Drug: [place] (HYDROcodone-acetaminophen) 10 mg-325 mg 1 tabs Route: PO; hb 17:34 Follow up: Response: No adverse reaction ld1 Medication: 14:50 VIS not applicable for this client. eh3 Outcome: 17:48 Discharge ordered by MD. pm1 18:26 Discharged to home via wheelchair. ld1 18:26 Condition: stable 18:26 Condition: stable 18:26 Discharge instructions given to patient, Instructed on discharge instructions, follow up and referral plans. medication usage, Demonstrated understanding of instructions, follow-up care, medications, Prescriptions given X 1. 18:27 Patient left the ED. ld1 Signatures: Dispatcher [employer] EDWI AguilarMinerva gonzales mr CorneliusKash, SUBGRADE ROLLER OPERATOR SUBGRADE ROLLER OPERATOR pm1 Zandra Davenport, RN RN Lakeshia Dillard RN RN ld1 Arlet Valente 3 Corrections: (The following items were deleted from the chart) 14:50 14:28 Musculoskeletal: Range of motion: eh3 eh3
[2021-10-26 18:40] VITALS: TEMP 98.1
[2021-10-26 18:48] VITALS: BP 117/70; O2SAT 100
== END 2021-10-26 18:27 | disposition home or self-care (01) ==
LOC: ER 14:05
PROC: 2W3QX1Z Immobilization of Right Lower Leg using Splint (ICD-10-PCS; principal; 2021-10-26)
DX: S93.401A Sprain of unspecified ligament of right ankle, initial encounter (principal); I10 Essential (primary) hypertension; Z88.3 Allergy status to other anti-infective agents
CPT/HCPCS: 99284